=== PATIENT | male | born 1955 | race Caucasian/White ===

== ENCOUNTER 2021-12-16 14:27 | Emergency (ER) | payer BC ==
[2021-12-16 14:40] VITALS: BP 146/69; PULSE 84
== END 2021-12-16 16:15 | disposition home or self-care (01) ==
LOC: CC.ED 14:27
DX: S99.911A Unspecified injury of right ankle, initial encounter (principal); M25.571 Pain in right ankle and joints of right foot; G89.29 Other chronic pain; I10 Essential (primary) hypertension; Z87.891 Personal history of nicotine dependence; Z79.899 Other long term (current) drug therapy; X58.XXXA Exposure to other specified factors, initial encounter
CPT/HCPCS: 73610-LT; 99283; 99284

== ENCOUNTER 2025-04-03 13:21 | Emergency (ER) | payer BC, MEDICARE ==
[2025-04-03 16:20] VITALS: BP 147/89; PULSE 74
== END 2025-04-03 14:20 | disposition home or self-care (01) ==
LOC: CC.ED 13:21
DX: B02.9 Zoster without complications (principal); I10 Essential (primary) hypertension; Z79.84 Long term (current) use of oral hypoglycemic drugs; Z79.899 Other long term (current) drug therapy; Z90.49 Acquired absence of other specified parts of digestive tract
CPT/HCPCS: 99282; A9270

== ENCOUNTER 2025-07-06 07:26 | Day surgery (SDC) | payer BC, MEDICARE ==
[2025-07-06] MEDS: Lactated Ringers 1,000 ML IV SCH (07:55)
[2025-07-06] MEDS ORDERED: Propofol 200 MG/20 ML SDV ONE (08:13)
[2025-07-06 14:37] VITALS: BP 126/63; PULSE 60
== END 2025-07-06 09:15 | disposition home or self-care (01) ==
LOC: CC.SDS 07:26
PROVIDERS: ATTEND Family Medicine
DX: Z12.11 Encounter for screening for malignant neoplasm of colon (principal); K62.1 Rectal polyp; K57.30 Diverticulosis of large intestine without perforation or abscess without bleeding; I10 Essential (primary) hypertension; E78.5 Hyperlipidemia, unspecified; E11.9 Type 2 diabetes mellitus without complications; Z79.84 Long term (current) use of oral hypoglycemic drugs; Z87.891 Personal history of nicotine dependence; Z79.899 Other long term (current) drug therapy
CPT/HCPCS: 00811; 88305; J2704; J7120